=== PATIENT | female | born 1985 | race Caucasian/White ===

== ENCOUNTER 2018-06-26 05:59 | Inpatient (IN) | payer BC, OTHER ==
[2018-06-26] MEDS: Lactated Ringers 1,000 ML IV SCH ×5 (05:25→23:18)
[2018-06-26] MEDS ORDERED: Misoprostol 400 MCG (4 X 100 MCG TAB) RECTAL PRN (06:00)
[2018-06-26] MEDS ORDERED: Naloxone 2 MG/2 ML Syringe IVPUSH PRN (06:00)
[2018-06-26] MEDS ORDERED: ePHEDrine 50 MG/ML SDV IVPUSH PRN (06:00)
[2018-06-26] MEDS ORDERED: Tranexamic Acid 1,000 MG in Sodium Chloride 0.9% 100 ML IV PRN (06:00)
[2018-06-26] MEDS ORDERED: Acetaminophen 325 MG Tab PO PRN (06:00)
[2018-06-26] MEDS ORDERED: diphenhydrAMINE 50 MG/ML SDV IVPUSH PRN (06:00)
[2018-06-26] MEDS ORDERED: Lactated Ringers 1,000 ML IV SCH (06:00)
[2018-06-26] MEDS ORDERED: Carboprost Tromethamine 250 MCG/1 ML Amp IM ONE (06:00)
[2018-06-26] MEDS ORDERED: Ondansetron 4 MG/2 ML SDV IV PRN (06:00)
[2018-06-26] MEDS ORDERED: Methylergonovine 0.2 MG/1 ML Amp IM PRN (06:00)
[2018-06-26] MEDS ORDERED: Citric Acid/Sodium Citrate Solution 30 ML Cup PO ONE (07:01)
[2018-06-26] MEDS ORDERED: ceFAZolin 2 GM in Premix Bag 1 BAG IV ONE (07:01)
[2018-06-26] MEDS ORDERED: Oxytocin/Normal Saline 30 UNIT/500 ML BAG IV SCH (07:15)
--- NOTE | 2018-06-26 10:27 | OR ---
DATE: 06/26/2018 PREOPERATIVE DIAGNOSES: 1. Intrauterine at 39 and 2/7 weeks, confirmed with a 21 and 4/7- week ultrasound. 2. Previous section x2, requests repeat low transverse section. 3. Group B Streptococcus positive. 4. History of loop electrosurgical excision procedure. 5. G3, P2-0-0-2. POSTOPERATIVE DIAGNOSES: 1. Intrauterine at 39 and 2/7 weeks, confirmed with a 21 and 4/7- week ultrasound, delivered. 2. Previous section x2, requests repeat low transverse section. 3. Group B Streptococcus positive. 4. History of loop electrosurgical excision procedure. 5. G3, P2-0-0-2. 6. Difficulty delivering vertex, requiring kiwi vacuum assistance. 7. Nuchal cord x1, reduced bluntly with delivery. PROCEDURES PERFORMED: Nonstress test followed by repeat low transverse section. COMMUNITY SERVICE OFFICER: Eva Negro MD. ANESTHESIA: Spinal. ESTIMATED BLOOD LOSS: 500 mL. INTRAVENOUS FLUIDS: 1200 mL. URINE OUTPUT: 350 mL, clear yellow. START: 0819 hours. UTERINE INCISION: 0823 hours. DELIVERY: 0824 hours. STOP: 0837 hours. FINDINGS: Male. scores 9 and 9. Weight pending. DESCRIPTION OF PROCEDURE IN DETAIL: After proper consent was obtained, the patient was brought to the operating room where a spinal anesthetic was administered. Cowart was placed in the preop under sterile conditions. Abdomen was prepped and draped in a normal sterile fashion with the patient placed in supine position with left lateral tilt. A skin incision was then made over the lower abdomen in a transverse Pfannenstiel-type fashion over previous scar. This was carried down to the fascia and scored in midline. Subcutaneous tissue was raked laterally with a Lopez retractor. Fascial incision was extended in a transverse fashion using curved Rose's. Teja clamps x2 were used to grasp the superior aspect of the fascia. Rectus muscles were dissected from the fascia using sharp and blunt technique. In a similar fashion, Teja clamps x2 were used to grasp the inferior portion of the incision, and rectus pyramidalis muscles were dissected from the fascia using sharp and blunt technique. Rectus muscles were in the midline with blunt technique. Abdominal cavity was entered in blunt technique. Incision was extended superiorly and inferiorly with blunt technique. Kaveh O retractor was then introduced and used. Vesicouterine peritoneum was then identified and incised in transverse fashion with Metzenbaum scissors, and bladder flap was made digitally. A curvilinear incision was made on the lower uterine segment at 0823 hours. Uterus was entered sharply. The uterine incision was then extended in a transverse fashion using blunt technique. Bulging bag of water was then ruptured with Allis clamps. Clear fluid returned. vertex was then attempted to be delivered through the incision without difficulty. Kiwi vacuum was called for, applied to the vertex, pumped up to the green with gentle pulling pressure with fundal pressure, vertex was delivered. Nuchal cord x1 was noted and reduced, and the rest of the infant delivered without difficulty. Mouth and nares were suctioned. Cord was doubly clamped and cut. was brought over to the team. Then, approximately 10 mL of cord blood was obtained for labs. Placenta was then delivered with gentle cord traction and fundal massage. Uterine cavity was cleared of all blood clots and debris with lap sponge. Sanchez clamps were then used to grasp the uterine incision. This was closed in a running locked fashion and tied at lateral margins with 1-0 Vicryl. Left of midline, there was some minimal bleeding. [id number]-vl-[id number] stitch was applied. Hemostasis was reassured. First inspection of the uterine incision revealed hemostasis. Kaveh O large retractor was then removed, and paracolic gutters were then cleared of all blood clots and debris with lap sponge. Anterior cul-de-sac was irrigated copiously. All blood clots and debris were removed. Second and final inspection of the uterine incision and anterior cul-de-sac revealed hemostasis. Rectus muscles were then reapproximated in midline with [id number] stitch using 1-0 Vicryl. Subfascial tissue was found to be hemostatic. Fascia was closed in a running fashion and tied at lateral margins with 0 looped PDS. Subcutaneous tissue was irrigated copiously. Hemostasis was reassured. Skin was reapproximated with medium geovani. Sterile Aquacel dressing was applied. The uterine fundus was firm and massaged at the conclusion of the case -2 below the umbilicus. No immediate complications were noted. Sponge, lap, and needle counts were correct. The patient received 2 g Ancef preoperatively, Pitocin per protocol and will receive Toradol at the conclusion of the case for pain control. Mother and are currently stable at the time of dictation. [facility] /[id number]
[2018-06-26] MEDS ORDERED: Oxytocin/Normal Saline 30 UNIT/500 ML BAG IV ONE (11:12)
[2018-06-26] MEDS ORDERED: Dexamethasone 4 MG/ML SDV IV ONE (11:13)
[2018-06-26] MEDS ORDERED: Bupivacaine 0.75%/D5W 2 ML Amp INJECT ONE (11:13)
[2018-06-26] MEDS ORDERED: Ketorolac 30 MG/ML SDV IVPUSH ONE (11:13)
[2018-06-26] MEDS ORDERED: ePHEDrine 50 MG/ML SDV IV ONE (11:13)
[2018-06-26] MEDS ORDERED: Ondansetron 4 MG/2 ML SDV IV ONE (11:13)
[2018-06-26] MEDS ORDERED: Lactated Ringers 1,000 ML IV ONE (11:13)
[2018-06-26] MEDS: Ketorolac 30 MG/ML SDV IVPUSH SCH ×2 (15:03→20:00)
[2018-06-26] MEDS: Simethicone 80 MG Tab.Chew PO SCH ×3 (15:04→21:07)
[2018-06-26] MEDS: Prenatal Multivitamin with Calcium/Folic Acid/Iron Tab PO SCH (17:14)
[2018-06-27] MEDS: Ketorolac 30 MG/ML SDV IVPUSH SCH (01:59)
[2018-06-27] MEDS: Acetaminophen/oxyCODONE 325-5 MG Tab PO PRN ×4 (02:10→23:58)
[2018-06-27] MEDS: Docusate Sodium 100 MG Cap PO PRN ×2 (08:50→23:58)
[2018-06-27] MEDS: Simethicone 80 MG Tab.Chew PO SCH ×4 (08:50→23:57)
[2018-06-27] MEDS: Prenatal Multivitamin with Calcium/Folic Acid/Iron Tab PO SCH (08:50)
--- NOTE | 2018-06-27 13:16 | PN ---
DATE: 06/27/2018 SUBJECTIVE: The patient is day #1 from a scheduled repeat low- transverse . Mom and baby are both doing well. Her Cowart was already out. She is ambulating, tolerating p.o. OBJECTIVE: Vital Signs: The patient's temp 36.4, she is afebrile, heart rate 61 to 84, blood pressure 104 to 122/51 to 80, respiratory rate 18 to 20, and O2 sat 97% to 99%. Abdomen: Benign. Extremities: No tenderness and no edema. The patient's blood type is A positive. She is rubella immune. Prior to surgery, hemoglobin was 11.9. This morning; white blood cell count 6.3, hemoglobin 10.2, and platelets 213. ASSESSMENT AND PLAN: day #1, status post repeat section. Mom and baby are both doing well. We will continue postoperative care. [facility] /[id number]
[2018-06-27] MEDS: Ibuprofen 800 MG Tab PO PRN ×2 (15:34→23:59)
[2018-06-28] MEDS: Simethicone 80 MG Tab.Chew PO SCH (08:37)
[2018-06-28] MEDS: Ibuprofen 800 MG Tab PO PRN (08:37)
[2018-06-28] MEDS: Prenatal Multivitamin with Calcium/Folic Acid/Iron Tab PO SCH (08:37)
--- NOTE | 2018-06-28 13:56 | DISCH ---
DATE: 06/28/2018 LOCATION: [facility]. SUBJECTIVE: The patient is postoperative day #2 from a repeat . Mom and baby were both doing well. She is ambulating, voiding, and tolerating p.o., but states percocet is too strong. PHYSICAL EXAMINATION: VITAL SIGNS: She is afebrile. Heart rate 72 to 96, blood pressure 108 to 114/59 to 69, respiratory rate 16 to 20, O2 sat 98% to 99%. ABDOMEN: Benign. The fundus is firm. Incision is healing well. LABORATORY DATA: Preoperatively, hemoglobin was 11.9; postoperatively, hemoglobin was 10; platelets are normal at 213. ASSESSMENT AND PLAN: Postoperative day #2 from a repeat . Mom and baby were both doing well. Fit for discharge. We will discharge her to home for followup in 2 to 6 weeks with her primary OB. [place] give in addition to Motrin and Tylenol, but encouraged her to continue those. Blood type is A positive. She is rubella immune. [facility] /[id number] MTDLianne
--- NOTE | 2018-06-29 11:42 | OBOUT ---
DATE: 06/26/2018 DATE AND TIME OF NST: Date: 06/26/2018 Time: 6:30 to 6:50. REASON FOR NST: 1. Intrauterine at 39+ weeks. 2. Previous , requests repeat low transverse . 3. GBS positive status. NST INTERPRETATION: During this time period, heart tone baseline is approximately 125 and there are at least two 15 x 15 beat per minute accelerations making this strip reactive. It is also noted to be reassuring. Tocometer reveals potential of 2 contractions, none felt by the patient. ASSESSMENT: 1. Nonstress test, reactive and reassuring. 2. Tocometer with contractions. PLAN: Please see admit history and physical which was done in conjunction with and scanned in through [facility]. Review of systems was reviewed and felt to be noncontributory. Blood pressure 130/72, heart rate 87, temperature 97.7. Please see H and P for further details. We will proceed to the OR as soon as crew is ready and available. [facility] /[id number]
== END 2018-06-28 12:10 | disposition home or self-care (01) | DRG 766 ==
LOC: DL.MS 05:59 → OBSVTOIN 08:24
PROVIDERS: ADMIT Family Medicine; ATTEND Family Medicine
PROC: 6A550ZT Pheresis of Cord Blood Stem Cells, Single (ICD-10-PCS; principal; 2018-06-26)
PROC: 10D00Z1 Extraction of Products of Conception, Low, Open Approach (ICD-10-PCS; principal; 2018-06-26)
DX: O34.211 Maternal care for low transverse scar from previous cesarean delivery (principal); Z3A.39 39 weeks gestation of pregnancy; Z37.0 Single live birth; O99.824 Streptococcus B carrier state complicating childbirth; O69.81X0 Labor and delivery complicated by cord around neck, without compression, not applicable or unspecified; Z67.10 Type A blood, Rh positive; Z87.891 Personal history of nicotine dependence
CPT/HCPCS: 36415; 85027; 86850; 86900; 86901; 94010; A9270-GY; J0690; J1100; J1885; J2405; J2590; J7120